=== PATIENT | male | born 1945 | race Caucasian/White ===

== ENCOUNTER 2021-03-26 07:41 | Inpatient (IN) | payer OTHER, SELFPAY ==
[2021-03-26] VITALS (17 sets, daily range): BP systolic 83–162
[~2021-03-26] VITALS: Ht 177.8 cm; Wt 77.1 kg
[2021-03-26] MEDS ORDERED: CEFEPIME 1 GM in D5W 50 ML IV ONE (08:00)
[2021-03-26] MEDS ORDERED: VANCOMYCIN HCL 1,000 MG in NS 250 ML IV ONE (08:00)
[2021-03-26 08:18] LABS: HEMATOCRIT 29.8 % (36-54); HEMOGLOBIN 10.2 g/dL (14.0-18.0); MEAN CORPUSCULAR HEMOGLOBIN 31 pg (27-31); MEAN CORPUSCULAR HGB CONC 34 % (32-36); MEAN CORPUSCULAR VOLUME 90 fL (79.0-98.0); RED BLOOD CELL COUNT(AUTO) 3.33 MIL/uL (4.2-6.2); RED CELL DISTRIBUTION WIDTH 18.2 % (9.0-15.0)
[2021-03-26 08:46] LABS: ANION GAP 7 (5-15); CALCIUM 8.5 mg/dL (8.4-11.0); CHLORIDE 100 mmol/L (98-107); CREATININE 0.74 mg/dL (0.55-1.30); GLUCOSE 148 mg/dL (70-99); POTASSIUM 3.7 mmol/L (3.5-5.1); SODIUM SERUM 135 mmol/L (136-145); UREA NITROGEN, BLOOD 25 mg/dL (8-21)
[2021-03-26 08:52] LABS: ALANINE AMINOTRANSFERASE 46 U/L (12-78); ALBUMIN 1.9 g/dL (3.4-4.8); ASPARTATE AMINOTRANSFERASE 32 U/L (10-37); LIPASE 101 U/L (73-393); PHOSPHORUS 2.2 mg/dL (2.7-4.5); TOTAL BILIRUBIN 0.8 mg/dL (0.0-1.0)
[2021-03-26] MEDS ORDERED: CEFEPIME 1 GM/VIAL (MAXIPIME) ONE (09:01)
[2021-03-26 09:14] LABS: PLATELET COUNT (AUTO) 28 K/uL (130-430); WHITE BLOOD COUNT (AUTO) 1.7 K/uL (4.8-10.8)
[2021-03-26] MEDS ORDERED: DEXAMETHASONE SOD PHOSPHATE 10 MG/ML VIAL IVP ONE (09:30)
[2021-03-26] MEDS ORDERED: SUCCINYLCHOLINE CHLORIDE 20 MG/ML(QUELICIN) IVP ONE ×2 (09:30→12:00)
[2021-03-26] MEDS ORDERED: ETOMIDATE 20 MG/ 10 ML VIAL (AMIDATE) IVP ONE ×2 (09:30→12:00)
[2021-03-26] MEDS ORDERED: NACL 0.9% 1,000 ML IV ONE ×3 (09:30→16:45)
[2021-03-26] MEDS ORDERED: levETIRAcetam 2,000 MG in NS 85 ML IV ONE (09:45)
[2021-03-26] MEDS ORDERED: DEXMEDETOMIDINE HCL 200 MCG in NS 48 ML IV PRN (09:45)
[2021-03-26] MEDS ORDERED: NOREPINEPHRINE BITARTRATE 4 MG in NS 246 ML IV ONE (10:00)
[2021-03-26 10:13] LABS: BILIRUBIN,URINE NEGATIVE (NEGATIVE); BLOOD, URINE 3+ (NEGATIVE); CLARITY/URINE TURBID (CLEAR); COLOR,URINE YELLOW (YELLOW); GLUCOSE,URINE 2+ (NEGATIVE); KETONES,URINE NEGATIVE (NEGATIVE); LEUKOCYTE ESTERASE ,URINE NEGATIVE (NEGATIVE); NITRITE, URINE NEGATIVE (NEGATIVE); PROTEIN URINE 2+ (NEGATIVE); UROBILINOGEN,URINE 0.2 (0.2-1.0)
[2021-03-26] MEDS ORDERED: NOREPINEPHRINE 4 MG/4 ML VIAL IV ONE (10:14)
[2021-03-26] MEDS ORDERED: IOHEXOL 350 mgI/mL, 150 ML INFUS..BTL IV ONE (10:19)
[2021-03-26 11:23] LABS: BACTERIA,URINE FEW /HPF (None Seen); WBC,URINE 0-3 /HPF (0-3); YEAST,URINE Many /HPF (None Seen)
[2021-03-26] MEDS ORDERED: FLUCONAZOLE 200 mg/ NS 100 ML IV ONE (12:15)
[2021-03-26] MEDS ORDERED: DOCUSATE SODIUM 100 MG CAPSULE PO PRN (13:30)
[2021-03-26] MEDS ORDERED: LORazepam 2 MG/ML VIAL IVP PRN (13:30)
[2021-03-26] MEDS ORDERED: MORPHINE 2 MG/ML INJ. SYRINGE IVP PRN ×2 (13:30)
[2021-03-26] MEDS ORDERED: MAGNESIUM SULFATE 50 ML IV PRN (13:30)
[2021-03-26] MEDS ORDERED: POTASSIUM CHLORIDE 20 MEQ TAB.PRT.SR PO PRN (13:30)
[2021-03-26] MEDS ORDERED: ONDANSETRON HCL 4 MG/2 ML VIAL IVP PRN (13:30)
[2021-03-26] MEDS ORDERED: ACETAMINOPHEN 325 MG TABLET PO PRN (13:30)
[2021-03-26] MEDS ORDERED: VANCOMYCIN HCL 1000 MG/VIAL IV ONE (13:30)
[2021-03-26] MEDS: PIPERACILLIN/TAZO 3.375 GM in NS 50 ML IV SCH ×2 (14:00→20:01)
[2021-03-26 14:21] LABS: BAND % (MANUAL) 0 % (0-6); BASOPHILS % (MANUAL) 0 % (0-2); EOSINOPHILS % (MANUAL) 0 % (0-7); LYMPHOCYTES % (MANUAL) 28 % (20-46); MONOCYTES % (MANUAL) 5 % (0-11)
[2021-03-26] MEDS ORDERED: DEXMEDETOMIDINE HCL 400 MCG in NS 96 ML IV PRN (15:45)
[2021-03-26] MEDS ORDERED: NOREPINEPHRINE BITARTRATE 4 MG in D5W 246 ML IV PRN (15:45)
[2021-03-26] MEDS ORDERED: NOREPINEPHRINE BITARTRATE 4 MG in NS 246 ML IV PRN (16:00)
[2021-03-26] MEDS ORDERED: FAMOTIDINE PF 20 MG/2 ML VIAL IVP ONE (19:00)
[2021-03-26] MEDS: MUPIROCIN 2% TOPICAL OINTMENT 22 GM NS SCH (21:00)
[2021-03-26] MEDS: DEXAMETHASONE SOD PHOSPHATE 4 MG/ML VIAL IM SCH (21:27)
[2021-03-26] MEDS: VANCOMYCIN HCL 750 MG in NS 250 ML IV SCH (21:28)
[2021-03-26] MEDS: NACL 0.9% 1,000 ML IV SCH ×2 (23:00→23:01)
[2021-03-27] VITALS (29 sets, daily range): BP systolic 98–140
[2021-03-27] MEDS: PIPERACILLIN/TAZO 3.375 GM in NS 50 ML IV SCH ×4 (02:06→19:59)
[2021-03-27] MEDS: VANCOMYCIN HCL 750 MG in NS 250 ML IV SCH ×3 (06:00→21:49)
[2021-03-27] MEDS ORDERED: NS 1000 ML IV.SOLN IV ONE (06:15)
[2021-03-27 06:40] LABS: BASOPHILS % (AUTO) 0.4 % (0.0-2.0); HEMATOCRIT 25.3 % (36-54); HEMOGLOBIN 8.6 g/dL (14.0-18.0); LYMPHOCYTES # (AUTO) 0.4 K/uL (1.0-5.5); LYMPHOCYTES % (AUTO) 37.7 % (20.5-51.5); MEAN CORPUSCULAR HEMOGLOBIN 31 pg (27-31); MEAN CORPUSCULAR HGB CONC 34 % (32-36); MEAN CORPUSCULAR VOLUME 90 fL (79.0-98.0); MONOCYTES % (AUTO) 3.6 % (1.7-9.3); NEUTROPHILS % (AUTO) 58.3 % (40.0-70.0); RED BLOOD CELL COUNT(AUTO) 2.81 MIL/uL (4.2-6.2); RED CELL DISTRIBUTION WIDTH 18.4 % (9.0-15.0)
[2021-03-27 07:47] LABS: ANION GAP 8 (5-15); CALCIUM 7.8 mg/dL (8.4-11.0); CHLORIDE 105 mmol/L (98-107); CREATININE 0.66 mg/dL (0.55-1.30); GLUCOSE 151 mg/dL (70-99); POTASSIUM 3.8 mmol/L (3.5-5.1); SODIUM SERUM 136 mmol/L (136-145); UREA NITROGEN, BLOOD 23 mg/dL (8-21)
[2021-03-27 08:06] LABS: NEUTROPHILS # (AUTO) 0.7 K/uL (1.8-7.7)
[2021-03-27 08:10] LABS: PLATELET COUNT (AUTO) 15 K/uL (130-430); WHITE BLOOD COUNT (AUTO) 1.2 K/uL (4.8-10.8)
[2021-03-27] MEDS: DEXAMETHASONE SOD PHOSPHATE 4 MG/ML VIAL IM SCH ×2 (08:15→20:17)
[2021-03-27] MEDS: NACL 0.9% 1,000 ML IV SCH ×2 (08:16→20:00)
[2021-03-27] MEDS: MUPIROCIN 2% TOPICAL OINTMENT 22 GM NS SCH ×2 (09:00→20:18)
[2021-03-27] MEDS ORDERED: LEVO25TA7 PO (14:40)
[2021-03-27] MEDS ORDERED: NEU300 PO (14:40)
[2021-03-27] MEDS ORDERED: ROSU10TA2 PO (14:40)
[2021-03-27] MEDS ORDERED: COR6.25 PO (14:40)
[2021-03-27] MEDS ORDERED: TENO25TA PO (14:40)
[2021-03-27] MEDS ORDERED: TAMS-11 PO (14:40)
[2021-03-27] MEDS ORDERED: MUPIROCIN 2% TOPICAL OINTMENT 22 GM NS ONE (16:15)
[2021-03-27 21:29] LABS: INR 1.2 (0.80-1.20); PROTHROMBIN TIME 12.2 SECS (9.5-12.5)
[2021-03-28] VITALS (34 sets, daily range): BP systolic 100–164
[2021-03-28] MEDS: PIPERACILLIN/TAZO 3.375 GM in NS 50 ML IV SCH ×4 (03:35→20:03)
[2021-03-28] MEDS: NACL 0.9% 1,000 ML IV SCH (05:28)
[2021-03-28] MEDS: VANCOMYCIN HCL 750 MG in NS 250 ML IV SCH ×2 (05:29→15:11)
[2021-03-28 06:21] LABS: HEMATOCRIT 22.8 % (36-54); HEMOGLOBIN 7.8 g/dL (14.0-18.0); MEAN CORPUSCULAR HEMOGLOBIN 30 pg (27-31); MEAN CORPUSCULAR HGB CONC 34 % (32-36); MEAN CORPUSCULAR VOLUME 89 fL (79.0-98.0); RED BLOOD CELL COUNT(AUTO) 2.58 MIL/uL (4.2-6.2); RED CELL DISTRIBUTION WIDTH 18.1 % (9.0-15.0)
[2021-03-28 06:38] LABS: ALANINE AMINOTRANSFERASE 41 U/L (12-78); ALBUMIN 1.2 g/dL (3.4-4.8); ANION GAP 12 (5-15); ASPARTATE AMINOTRANSFERASE 34 U/L (10-37); CALCIUM 7.8 mg/dL (8.4-11.0); CHLORIDE 107 mmol/L (98-107); CREATININE 0.71 mg/dL (0.55-1.30); GLUCOSE 206 mg/dL (70-99); POTASSIUM 3.3 mmol/L (3.5-5.1); SODIUM SERUM 137 mmol/L (136-145); TOTAL BILIRUBIN 0.6 mg/dL (0.0-1.0); UREA NITROGEN, BLOOD 25 mg/dL (8-21)
[2021-03-28] MEDS: DEXAMETHASONE SOD PHOSPHATE 4 MG/ML VIAL IM SCH (08:18)
[2021-03-28] MEDS: MUPIROCIN 2% TOPICAL OINTMENT 22 GM NS SCH ×2 (08:19→21:46)
[2021-03-28 09:00] LABS: PLATELET COUNT (AUTO) 14 K/uL (130-430)
[2021-03-28] MEDS: MICAFUNGIN SODIUM 100 MG in NS 100 ML IV SCH (09:46)
[2021-03-28] MEDS ORDERED: POTASSIUM CHLORIDE 40 MEQ in NS 250 ML IV ONE (10:00)
[2021-03-28 13:53] LABS: WHITE BLOOD COUNT (AUTO) 0.6 K/uL (4.8-10.8)
[2021-03-28] MEDS ORDERED: levETIRAcetam 1,000 MG IV BAG 100 ML IV ONE (18:45)
[2021-03-28] MEDS ORDERED: DEXAMETHASONE SOD PHOSPHATE 10 MG/ML VIAL IVP ONE (19:30)
[2021-03-28] MEDS ORDERED: DEXAMETHASONE SOD PHOSPHATE 4 MG/ML VIAL IV SCH (21:00)
[2021-03-28] MEDS ORDERED: TBO-FILGRASTIM 300 MCG/0.5 ML SYRINGE SUBCUT ONE (21:00)
[2021-03-28] MEDS: VANCOMYCIN HCL 1,000 MG in NS 250 ML IV SCH (21:48)
[2021-03-28 22:54] LABS: BILIRUBIN,URINE NEGATIVE (NEGATIVE); BLOOD, URINE 3+ (NEGATIVE); COLOR,URINE YELLOW (YELLOW); GLUCOSE,URINE 1+ (NEGATIVE); KETONES,URINE 1+ (NEGATIVE); LEUKOCYTE ESTERASE ,URINE NEGATIVE (NEGATIVE); NITRITE, URINE NEGATIVE (NEGATIVE); PROTEIN URINE 2+ (NEGATIVE); UROBILINOGEN,URINE 0.2 (0.2-1.0)
[2021-03-28 22:55] LABS: CLARITY/URINE HAZY (CLEAR)
[2021-03-28] MEDS ORDERED: levETIRAcetam 1,000 MG IV BAG 100 ML IV SCH (23:00)
[2021-03-28 23:19] LABS: BACTERIA,URINE MODERATE /HPF (None Seen); YEAST,URINE Few /HPF (None Seen)
[2021-03-28 23:20] LABS: COARSE GRANULAR CASTS,URINE 0-10 /LPF (None Seen)
[2021-03-29] VITALS (27 sets, daily range): BP systolic 105–160
[2021-03-29] MEDS: DEXAMETHASONE SOD PHOSPHATE 10 MG/ML VIAL IVP SCH ×4 (00:12→17:05)
[2021-03-29] MEDS: PIPERACILLIN/TAZO 3.375 GM in NS 50 ML IV SCH ×3 (01:45→13:53)
[2021-03-29] MEDS ORDERED: DEXAMETHASONE SOD PHOSPHATE 10 MG/ML VIAL ONE (05:40)
[2021-03-29 06:22] LABS: BASOPHILS % (AUTO) 0.2 % (0.0-2.0); EOSINOPHILS % (AUTO) 0.2 % (0.0-4.0); HEMATOCRIT 25.2 % (36-54); HEMOGLOBIN 8.6 g/dL (14.0-18.0); LYMPHOCYTES # (AUTO) 0.2 K/uL (1.0-5.5); MEAN CORPUSCULAR HEMOGLOBIN 30 pg (27-31); MEAN CORPUSCULAR HGB CONC 34 % (32-36); MEAN CORPUSCULAR VOLUME 89 fL (79.0-98.0); MONOCYTES # (AUTO) 0.1 K/uL (0.0-1.0); NEUTROPHILS % (AUTO) 75.6 % (40.0-70.0); RED BLOOD CELL COUNT(AUTO) 2.82 MIL/uL (4.2-6.2); RED CELL DISTRIBUTION WIDTH 18.6 % (9.0-15.0); RETICULOCYTE COUNT 0.7 % (0.5-1.5)
[2021-03-29 06:39] LABS: ANION GAP 11 (5-15); CALCIUM 8.4 mg/dL (8.4-11.0); CHLORIDE 108 mmol/L (98-107); GLUCOSE 239 mg/dL (70-99); POTASSIUM 3.9 mmol/L (3.5-5.1); SODIUM SERUM 138 mmol/L (136-145); UREA NITROGEN, BLOOD 34 mg/dL (8-21)
[2021-03-29 07:25] LABS: NEUTROPHILS # (AUTO) 0.8 K/uL (1.8-7.7)
[2021-03-29 07:26] LABS: PLATELET COUNT (AUTO) 14 K/uL (130-430)
[2021-03-29 07:54] LABS: TOTAL IRON BIND. CAPACITY 79 ug/dL (250-450)
[2021-03-29] MEDS: levETIRAcetam 1,000 MG IV BAG 100 ML IV SCH ×2 (08:19→20:47)
[2021-03-29] MEDS: MUPIROCIN 2% TOPICAL OINTMENT 22 GM NS SCH ×2 (08:20→21:46)
[2021-03-29] MEDS: MICAFUNGIN SODIUM 100 MG in NS 100 ML IV SCH (09:50)
[2021-03-29] MEDS: VANCOMYCIN HCL 1,000 MG in NS 250 ML IV SCH ×2 (11:07→21:46)
[2021-03-29] MEDS: TBO-FILGRASTIM 300 MCG/0.5 ML SYRINGE SUBCUT SCH (17:05)
[2021-03-29] MEDS ORDERED: MEROPENEM 1 GM VIAL IV ONE (21:22)
[2021-03-29] MEDS: MEROPENEM 1 GM in NS 100 ML IV SCH (21:46)
[2021-03-30] VITALS (27 sets, daily range): BP systolic 138–172
[2021-03-30] MEDS: DEXAMETHASONE SOD PHOSPHATE 10 MG/ML VIAL IVP SCH ×5 (00:12→23:52)
[2021-03-30 06:28] LABS: ANION GAP 12 (5-15); CALCIUM 8.6 mg/dL (8.4-11.0); CHLORIDE 112 mmol/L (98-107); CREATININE 0.95 mg/dL (0.55-1.30); GLUCOSE 286 mg/dL (70-99); POTASSIUM 3.7 mmol/L (3.5-5.1); SODIUM SERUM 144 mmol/L (136-145); UREA NITROGEN, BLOOD 39 mg/dL (8-21)
[2021-03-30 06:30] LABS: BASOPHILS % (AUTO) 0.1 % (0.0-2.0); EOSINOPHILS % (AUTO) 0.1 % (0.0-4.0); HEMATOCRIT 22.8 % (36-54); HEMOGLOBIN 7.7 g/dL (14.0-18.0); LYMPHOCYTES # (AUTO) 0.1 K/uL (1.0-5.5); LYMPHOCYTES % (AUTO) 11.7 % (20.5-51.5); MEAN CORPUSCULAR HEMOGLOBIN 30 pg (27-31); MEAN CORPUSCULAR HGB CONC 34 % (32-36); MEAN CORPUSCULAR VOLUME 90 fL (79.0-98.0); MONOCYTES % (AUTO) 4.1 % (1.7-9.3); RED BLOOD CELL COUNT(AUTO) 2.54 MIL/uL (4.2-6.2); RED CELL DISTRIBUTION WIDTH 18.6 % (9.0-15.0)
[2021-03-30 07:06] LABS: FOLATE (FOLIC ACID) 9.6 ng/mL (>3.0)
[2021-03-30 09:09] LABS: PLATELET COUNT (AUTO) 25 K/uL (130-430); WHITE BLOOD COUNT (AUTO) 1.2 K/uL (4.8-10.8)
[2021-03-30 09:49] LABS: FERRITIN 5018 ng/mL (30-400)
[2021-03-30] MEDS: MICAFUNGIN SODIUM 100 MG in NS 100 ML IV SCH (10:19)
[2021-03-30] MEDS: levETIRAcetam 1,000 MG IV BAG 100 ML IV SCH ×2 (10:20→20:54)
[2021-03-30] MEDS: MEROPENEM 1 GM in NS 100 ML IV SCH ×2 (10:22→20:54)
[2021-03-30] MEDS: MUPIROCIN 2% TOPICAL OINTMENT 22 GM NS SCH ×2 (10:23→20:56)
[2021-03-30] MEDS ORDERED: MENTHOL/ZINC OXIDE 113 GM OINT. TP PRN (12:45)
[2021-03-30] MEDS: TBO-FILGRASTIM 300 MCG/0.5 ML SYRINGE SUBCUT SCH (17:18)
[2021-03-31] VITALS (16 sets, daily range): BP systolic 119–184
[2021-03-31] MEDS: DEXAMETHASONE SOD PHOSPHATE 10 MG/ML VIAL IVP SCH (06:05)
[2021-03-31] MEDS ORDERED: hydrALAZINE HCL 20 MG/ML VIAL IVP PRN (06:15)
[2021-03-31 06:40] LABS: BASOPHILS % (AUTO) 0.2 % (0.0-2.0); EOSINOPHILS % (AUTO) 0.1 % (0.0-4.0); HEMATOCRIT 26.3 % (36-54); HEMOGLOBIN 8.9 g/dL (14.0-18.0); LYMPHOCYTES # (AUTO) 0.2 K/uL (1.0-5.5); LYMPHOCYTES % (AUTO) 9.4 % (20.5-51.5); MEAN CORPUSCULAR HEMOGLOBIN 30 pg (27-31); MEAN CORPUSCULAR HGB CONC 34 % (32-36); MEAN CORPUSCULAR VOLUME 90 fL (79.0-98.0); MONOCYTES % (AUTO) 2.2 % (1.7-9.3); NEUTROPHILS # (AUTO) 1.8 K/uL (1.8-7.7); RED BLOOD CELL COUNT(AUTO) 2.91 MIL/uL (4.2-6.2); WHITE BLOOD COUNT (AUTO) 2.1 K/uL (4.8-10.8)
[2021-03-31 07:56] LABS: ALANINE AMINOTRANSFERASE 41 U/L (12-78); ALBUMIN 1.3 g/dL (3.4-4.8); ANION GAP 18 (5-15); ASPARTATE AMINOTRANSFERASE 41 U/L (10-37); CALCIUM 8.4 mg/dL (8.4-11.0); CHLORIDE 111 mmol/L (98-107); CREATININE 1.29 mg/dL (0.55-1.30); POTASSIUM 4.5 mmol/L (3.5-5.1); SODIUM SERUM 144 mmol/L (136-145); TOTAL BILIRUBIN 0.9 mg/dL (0.0-1.0); UREA NITROGEN, BLOOD 55 mg/dL (8-21); VANCOMYCIN,RANDOM 25.8 ug/mL
[2021-03-31 08:21] LABS: GLUCOSE 428 mg/dL (70-99)
[2021-03-31 08:57] LABS: PLATELET COUNT (AUTO) 27 K/uL (130-430)
[2021-03-31] MEDS: MEROPENEM 1 GM in NS 100 ML IV SCH (09:06)
[2021-03-31] MEDS: MUPIROCIN 2% TOPICAL OINTMENT 22 GM NS SCH (09:07)
[2021-03-31] MEDS: levETIRAcetam 1,000 MG IV BAG 100 ML IV SCH (09:07)
[2021-03-31] MEDS: MICAFUNGIN SODIUM 100 MG in NS 100 ML IV SCH (09:44)
[2021-03-31] MEDS ORDERED: FLUCONAZOLE 200 mg/ NS 100 ML IV SCH (10:00)
[2021-03-31 10:12] LABS: FIBRINOGEN 128 mg/dL (200-400)
[2021-03-31] MEDS ORDERED: DEXAMETHASONE SOD PHOSPHATE 4 MG/ML VIAL IVP SCH (12:00)
[2021-03-31 13:52] LABS: NEUTROPHILS % (AUTO) 88.1 % (40.0-70.0)
== END 2021-03-31 13:30 | DRG 870 ==
LOC: SED 07:41 → SIC 13:09
PROVIDERS: ADMIT Internal Medicine Hospice and Palliative Medicine; ATTEND Internal Medicine Hospice and Palliative Medicine
PROC: 5A1955Z Respiratory Ventilation, Greater than 96 Consecutive Hours (ICD-10-PCS; principal; 2021-03-26)
PROC: 0BH17EZ Insertion of Endotracheal Airway into Trachea, Via Natural or Artificial Opening (ICD-10-PCS; 2021-03-26)
PROC: 30233R1 Transfusion of Nonautologous Platelets into Peripheral Vein, Percutaneous Approach (ICD-10-PCS; 2021-03-29)
PROC: 30233N1 Transfusion of Nonautologous Red Blood Cells into Peripheral Vein, Percutaneous Approach (ICD-10-PCS; 2021-03-29)
DX: A41.9 Sepsis, unspecified organism (principal); J96.01 Acute respiratory failure with hypoxia; R65.21 Severe sepsis with septic shock; J69.0 Pneumonitis due to inhalation of food and vomit; C85.10 Unspecified B-cell lymphoma, unspecified site; I24.8 Other forms of acute ischemic heart disease; C79.31 Secondary malignant neoplasm of brain; D84.9 Immunodeficiency, unspecified; D61.818 Other pancytopenia; G93.40 Encephalopathy, unspecified; N39.0 Urinary tract infection, site not specified; B49 Unspecified mycosis; E11.9 Type 2 diabetes mellitus without complications; F03.90 Unspecified dementia, unspecified severity, without behavioral disturbance, psychotic disturbance, mood disturbance, and anxiety; Z20.822 Contact with and (suspected) exposure to COVID-19; N40.0 Benign prostatic hyperplasia without lower urinary tract symptoms; D63.8 Anemia in other chronic diseases classified elsewhere; I25.10 Atherosclerotic heart disease of native coronary artery without angina pectoris; Z92.21 Personal history of antineoplastic chemotherapy; Z95.1 Presence of aortocoronary bypass graft
CPT/HCPCS: 36415; 36600; 70450-TC; 71045; 71275; 76376; 80048; 80053; 80202; 81000; 82607; 82728; 82746; 82803-TC; 82962; 83036; 83540; 83550; 83605; 83690; 83735; 83880; 84100; 84484; 85007; 85025; 85027; 85044; 85379; 85384; 85610-TC; 85730-TC; 86900; 86901; 87040-TC; 87070-TC; 87081; 87086; 87186-TC; 87205-TC; 92950; 93005; 93971; 94002; 94003; 94640; 95816; 96374; 96375; 99291; 99292; J0330; J0360; J0692; J1100; J1447; J1450; J1953; J1956; J2185; J2248; J2543; J3370; J3480; J3490; J7050; J7060; P9034; Q9967; U0003